=== PATIENT | female | born 1960 | race Two or more races ===

== ENCOUNTER 2018-09-13 13:45 | Emergency (ER) | payer OTHER ==
[~2018-09-13] VITALS: Ht 160 cm; Wt 78.0 kg
[~2018-09-13 13:45] MED LIST: ATACAND32 MG PO; CENTRUM SILVER1 TAB PO; LISINOPRIL10 MG; NORVASC2.5 MG PO; SYNTHROID50 MCG; TOPROL XL200 MG PO
[2018-09-13] MEDS ORDERED: PEPCID20 MG (14:08)
== END 2018-09-13 19:16 | disposition home or self-care (01) ==
LOC: ER 13:45
DX: K29.70 Gastritis, unspecified, without bleeding (principal)

== ENCOUNTER 2018-10-13 07:36 | Outpatient (CLI) | payer OTHER ==
[~2018-10-13 07:36] MED LIST changes: +PEPCID20 MG
== END 2018-10-13 07:39 | disposition home or self-care (01) ==
LOC: MRI 07:36
DX: N95.1 Menopausal and female climacteric states (principal); N83.00 Follicular cyst of ovary, unspecified side; M75.22 Bicipital tendinitis, left shoulder; M25.861 Other specified joint disorders, right knee; M25.2 Flail joint; M14.86 Arthropathies in other specified diseases classified elsewhere, knee
CPT/HCPCS: 73721

== ENCOUNTER 2018-10-22 10:24 | Outpatient (CLI) | payer OTHER | END 2018-10-22 10:29 | disposition home or self-care (01) | LOC: RAD 10:24 | DX: M17.0 Bilateral primary osteoarthritis of knee (principal) ==

== ENCOUNTER 2020-07-11 08:48 | Outpatient (CLI) | payer OTHER | END 2020-07-11 09:05 | disposition home or self-care (01) | LOC: SONOGRAMA 08:48 → MAMO-SONO 10:45 | PROVIDERS: ATTEND Family Medicine | DX: E04.1 Nontoxic single thyroid nodule (principal); E03.8 Other specified hypothyroidism ==

== ENCOUNTER 2020-08-14 07:15 | Outpatient (CLI) | payer OTHER | END 2020-08-14 07:24 | disposition home or self-care (01) | LOC: SONOGRAMA 07:15 → MAMO-SONO 07:45 | DX: K76.0 Fatty (change of) liver, not elsewhere classified (principal) ==